=== PATIENT | male | born 1970 | race Caucasian/White ===

== ENCOUNTER 2024-04-04 13:30 | Emergency (ER) | payer BC ==
[2024-04-04] MEDS: Lidocaine 1% 5 ML VIAL INJECT ONE (13:47)
[2024-04-04] MEDS: Bacitracin/Neomycin/Polymyxin B Oint 0.9 GM U/D Packet TOP ONE (14:40)
== END 2024-04-04 14:47 | disposition home or self-care (01) ==
LOC: KA.ED 13:30
DX: S01.312A Laceration without foreign body of left ear, initial encounter (principal); W19.XXXA Unspecified fall, initial encounter
CPT/HCPCS: 12013; 99282; 99283; J3490

== ENCOUNTER 2024-12-18 07:30 | Day surgery (SDC) | payer BC ==
[~2024-12-18 07:30] MED LIST: Sodium Chloride 0.9% 10 ML Syringe FLUSH PRN
[2024-12-18] MEDS: Lactated Ringers 1,000 ML IV SCH (07:38)
[2024-12-18] MEDS ORDERED: Propofol 200 MG/20 ML SDV ONE (08:35)
[2024-12-18] MEDS ORDERED: Midazolam 1 MG/ML 2 ML SDV ONE (08:35)
== END 2024-12-18 10:13 | disposition home or self-care (01) ==
LOC: KA.SDS 07:30
PROVIDERS: ATTEND Surgery
DX: Z12.11 Encounter for screening for malignant neoplasm of colon (principal); D12.3 Benign neoplasm of transverse colon; D12.0 Benign neoplasm of cecum; D12.2 Benign neoplasm of ascending colon; K63.5 Polyp of colon; E78.5 Hyperlipidemia, unspecified
CPT/HCPCS: 00811; 45380; 45385; J2250; J2704; J7120